=== PATIENT | male | born 1975 | race Caucasian/White ===

== ENCOUNTER → 2017-09-16 | Outpatient (CLI) | payer OTHER | END | disposition home or self-care (01) | LOC: C.LAB 15:04 | DX: Z02.83 Encounter for blood-alcohol and blood-drug test (principal) ==

== ENCOUNTER 2019-05-12 18:39 | Inpatient (IN) ==
--- OUTSIDE RECORDS SUMMARY | 2019-05-12 18:41 | External Medical Summary | Continuity of Care Document ---
:1975 Author Name Bertin Ramos, Provider Address Unavailable Unavailable , Care Team Providers Name Role Phone Phillip Ramos, Toi Unavailable [email or web address] Unavailable Unavailable Problems Active medical history not documented Allergies and Adverse Reactions Allergy history not documented Medications Medications not documented Procedures Procedures not documented Immunizations Immunizations not documented Plan of Treatment Planned Observations Planned Goals not documented Results No Known Results Results not documented
[2019-05-12] MEDS ORDERED: LORazepam 1 MG/2 ML VIAL IV STA (19:01)
[2019-05-12] MEDS ORDERED: SODIUM CHLORIDE 0.9% 1000ML 1,000 ML IV SCH (19:15)
[2019-05-12 19:29] LABS: Basophils % (auto) 2.1 %; Eosinophils # (auto) 0.05 K/uL (0-0.5); Hematocrit (blood only) 46.2 % (42-52); Hemoglobin 16.8 g/dL (14.0-18.0); Immature Granulocytes # (auto) 0.01 K/uL (0.00-0.02); Immature Granulocytes % (auto) 0.2 %; Lymphocytes # (auto) 1.34 K/uL (1.2-3.4); Lymphocytes % (auto) 27.5 %; Mean Corpuscular Hgb Conc 36.4 g/dL (32-36); Mean Corpuscular Volume 89.2 fL (80-100); Mean Platelet Volume 10.1 fL (7.4-10.4); Monocytes % (auto) 18.5 %; Neutrophils # (auto) 2.47 K/uL (1.4-6.5); Neutrophils % (auto) 50.7 %; Platelet Count 219 K/uL (130-400); RDW Coefficient of Variation 12.6 % (11.5-14.5); RDW Standard Deviation 40.5 fL (36.4-46.3); Red Blood Count 5.18 M/uL (4.7-6.1); White Blood Count 4.87 K/uL (4.8-10.8)
--- NOTE | 2019-05-12 19:31 | XRay Report ---
XR chest 1V portable CLINICAL HISTORY: dizzy, HTN TACHYCARDIA COMPARISON STUDY: No previous studies for comparison. FINDINGS: The cardiac and mediastinal contours are normal. There is no evidence of focal pulmonary co nsolidation. There is no evidence of failure. No pleural effusions are visualized.[ IMPRESSION: No active disease in the chest. Electronically signed by: Julio Beckham M.D. 05/12/2019 7:30 PM
[2019-05-12 19:47] LABS: Alanine Aminotransferase 136 U/L (12-78); Albumin Level 4.4 gm/dl (3.4-5.0); Aspartate Aminotransferase 75 U/L (15-37); BUN Creatinine Ratio 5.4 (10-20); Blood Urea Nitrogen 5 mg/dl (7-18); Carbon Dioxide 29 mmol/L (21-32); Chloride 97 mmol/L (98-107); Est GFR (African American) 119.1; Est GFR (Non-African American) 102.8; Glucose 148 mg/dl (70-99); Magnesium 1.7 mg/dl (1.8-2.4); Potassium 3.1 mmol/L (3.5-5.1); Sodium 135 mmol/L (136-145)
[2019-05-12 19:53] LABS: INR 1.1 (0.9-1.1); Prothrombin Time 11.3 Seconds (9.0-12.0)
[2019-05-12 19:58] LABS: Alkaline Phosphatase 84 U/L (45-117); Bilirubin,Total 1.5 mg/dl (0.2-1); Globulin 4.2 gm/dl (2.5-4.0); Phosphorus 2.2 mg/dl (2.5-4.9); Total Protein 8.6 gm/dl (6.4-8.2); Troponin I < 0.015 ng/ml (0-0.045)
[2019-05-12] MEDS ORDERED: FOLIC ACID 1 MG TAB PO STA (20:07)
[2019-05-12] MEDS ORDERED: ASCORBIC ACID 1,500 MG, THIAMINE HCL 100 MG in 0.9 % SODIUM CHLORIDE 100 ML IV STA (20:07)
[2019-05-12] MEDS ORDERED: POTASSIUM CHLORIDE 20 MEQ TABCR PO STA (20:07)
[2019-05-12] MEDS ORDERED: DIAZEPAM 5 MG/ML INJ 10ML VIAL IV STA ×3 (20:07→21:36)
[2019-05-12] MEDS ORDERED: MAGNESIUM CHLORIDE 64MG DELAYED REL TAB PO STA (20:07)
[2019-05-12] MEDS ORDERED: MAGNESIUM SULFATE / D5W 1 GM/100 ML BAG IV ONE (20:07)
--- NOTE | 2019-05-12 21:41 | Emergency Department Note ---
Entered by [place] acting as a scribe for Abimael Gage M.D. History of Present Illness General Chief complaint: Hypertension Stated complaint: HIGH BLOOD PRESSURE, DIZZINESS Source: patient Mode of arrival: ambulatory Limitations: no limitations History of Present Illness Onset (ago): day(s) 1 Radiation: non-radiation Pain Consistency: + constant Relieved By: + none Exacerbated By: + none Associated symptoms: + nausea/vomiting (+nausea, -vomiting), + weakness and + other (-abdominal pain); no chest pain, no headaches and no shortness of breath Treatments prior to arrival: none The patient is a 43 year old male who presents to the ED with complaints of hypertension. He states this morning he woke up very early feeling anxious, chilled and diaphoretic, like he was "having a panic attack". He felt weak and lethargic for most of the day and reports he slept a lot today, then had his Mother check his blood pressure and it was elevated. The patient admits to a history of heavy alcohol use and states he stopped drinking 2 weeks ago. He does not take any daily medications. He denies any recent headache, chest pain, ok rtness of breath or abdominal pain. He was nauseous earlier today but has not vomited. He denies any changes in vision. He did feel lightheaded earlier today but denies any syncopal episodes. The patient states he used to take Losartan for his blood pressure but has not taken it in 3 years due to not having health insurance currently. Home Medications Home Medications Medication Instructions Recorded Confirmed Type ibuprofen [Advil] 400 mg PO HS PRN 05/12/19 05/12/19 History Allergies Allergy/AdvReac Type Severity Reaction Status Date / Time Penicillins Allergy Hives Verified 05/12/19 19:24 Past Med/Surg History Medical History Alcohol abuse HTN (hypertension) Family History Other Family history non-contributory Social History marital status: Current Living Situation: Spouse current occupational status: employed Feels Safe at Home: Yes Smoking Status: Former smoker Review of Systems See HPI for pertinent positives & negatives. and A total of 10 systems reviewed and were otherwise negative Physical Exam Vital Signs Vital Signs - 24 hr 05/12/19 18:44 05/12/19 19:13 05/12/19 19:45 Temperature 36.7 C Temperature Source Oral Sepsis Recent Fever Within 48 Hours No Sepsis New/Unexplained Change in Mental Status No Sepsis Action Taken by Nursing No Action Required Pulse Rate 108 H Pulse Rate [Apical] 99 H Respiratory Rate 16 20 Respiratory Depth Normal Blood Pressure 225/127 H Blood Pressure [Left Arm] 184/120 H Blood Pressure Mean 159 Blood Pressure Mean [Left Arm] 141 Blood Pressure Position Sitting Pulse Oximetry 97 97 96 Oxygen Delivery Method Room Air Room Air Room Air 05/12/19 20:42 Temperature Temperature Source Sepsis Recent Fever Within 48 Hours Sepsis New/Unexplained Change in Mental Status Sepsis Action Taken by Nursing Pulse Rate Pulse Rate [Apical] 92 H Respiratory Rate 18 Respiratory Depth Blood Pressure Blood Pressure [Left Arm] 167/112 H Blood Pressure Mean Blood Pressure Mean [Left Arm] 130 Blood Pressure Position Pulse Oximetry 96 Oxygen Delivery Method Room Air GENERAL: Awake, alert, appears slightly tremulous, no slurred speech HENT: Normocephalic, atraumatic. Oropharynx unremarkable. EYES: Normal conjunctiva. Sclera non-icteric. PERRL. NECK: Supple. No nuchal rigidity. RESPIRATORY: Clear to auscultation. No wheezes. Normal respiratory effort. CARDIAC: Tachycardic heart rate. Normal rhythm. Extremities warm and well p erfused. GI: Soft, non-distended. No tenderness to palpation. No rebound or guarding. No masses. RECTAL: Deferred. MUSCULOSKELETAL: Atraumatic. Chest examination reveals no tenderness. LOWER EXTREMITIES: Calves are equal size bilaterally and non-tender. No edema NEURO: Normal sensorium. No sensory or motor deficits noted. No facial droop. Tremor of tongue and hands. SKIN: Warm and dry. No rash or jaundice noted. Course 1853: The patient was evaluated in room C5 and a complete history and physical were performed. 2004: I reevaluated the patient. He states he might have had a drink of alcohol yesterday. 2099: I talked with the patient and his family and the patient is agreeable with inpatient treatment and rehab. His symptoms are slowly improving. 2103: I discussed the patients case with Chantel Carrera. The patient will be further evaluated. Consultations Consultation #1: I discussed the patients case with Dr. Palepu, [facility]ist. The patient will be further evaluated. Time: 21:04 Administered Medications Discontinued Medications Diazepam (Valium) 5 mg IV NOW STA Stop: 05/12/19 20:08 Last Admin: 05/12/19 20:16 Dose: 5 mg Documented by: [id number] Diazepam (Valium) 5 mg IV NOW STA Stop: 05/12/19 21:02 Last Admin: 05/12/19 21:22 Dose: 5 mg Documented by: [id number] Folic Acid (Folvite) 1 mg PO ONE STA Stop: 05/12/19 20:08 Last Admin: 05/12/19 20:36 Dose: 1 mg Documented by: [id number] Lorazepam (Ativan) 1 mg in 2 mls @ 2 mls/min IV NOW STA Stop: 05/12/19 19:02 Last Admin: 05/12/19 19:40 Dose: 2 mls/min Documented by: [id number] Sodium Chloride (Nss 1000ml) 1,000 mls @ 999 mls/hr IV .Q1H1M ARTHUR Stop: 05/12/19 20:15 Last Infusion: 05/12/19 21:03 Dose: 0 mls/hr Documented by: [id number] Admin: 05/12/19 19:40 Dose: 999 mls/hr Documented by: [id number] Magnesium Sulfate/Dextrose (Magnesium Sulfate / D5w) 1 gm in 100 mls @ 100 mls/hr IV ONE ONE Stop: 05/12/19 21:06 Last Infusion: 05/12/19 21:30 Dose: 0 mls/hr Documented by: [id number] Admin: 05/12/19 20:16 Dose: 100 mls/hr Documented by: [id number] Ascorbic Acid 1,500 mg/Thiamine HCl 100 mg/ Sodium Chloride 104 mls @ 207 mls/hr IV ONE STA Stop: 05/12/19 20:37 Last Infusion: 05/12/19 21:30 Dose: 0 mls/hr Documented by: [id number] Admin: 05/12/19 20:36 Dose: 207 mls/hr Documented by: [id number] Magnesium Chloride (Slow-Mag) 64 mg PO ONE STA Stop: 05/12/19 20:08 Last Admin: 05/12/19 20:36 Dose: 64 mg Documented by: [id number] Potassium Chloride (Klor-Con M20) 40 meq PO NOW STA Stop: 05/12/19 20:08 Last Admin: 05/12/19 20:16 Dose: 40 meq Documented by: [id number] Medical Decision Making Differential Diagnosis Etiologies such as benign hypertension, hypertensive emergency, cardiovascular pathology, pheochromocytoma, electrolyte abnormality, renal disease, endorgan damage, as well as others were entertained. Medical Records Attestation: I reviewed the patient's medical records. Home Medications Current Medication List: was personally reviewed by me Laboratory Data Attestation: I reviewed the patient's lab results. Result diagrams: 05/12/19 19:07 05/12/19 19:07 Lab Results 05/12/19 05/12/19 05/12/19 Range/Units 19: 19: 19:07 WBC 4.87 (4.8-10.8) K/uL RBC 5.18 (4.7-6.1) M/uL Hgb 16.8 (14.0-18.0) g/dL Hct 46.2 (42-52) % MCV 89.2 (80-100) fL MCH 32.4 (25-34) pg MCHC 36.4 H (32-36) g/dL RDW Std Deviation 40.5 (36.4-46.3) fL RDW Coeff of Catrina 12.6 (11.5-14.5) % Plt Count 219 (130-400) K/uL MPV 10.1 (7.4-10.4) fL Immature Gran % (Auto) 0.2 % Neut % (Auto) 50.7 % Lymph % (Auto) 27.5 % Desha % (Auto) 18.5 % Eos % (Auto) 1.0 % Baso % (Auto) 2.1 % Immature Gran # (Auto) 0.01 (0.00-0.02) K/uL Neut # (Auto) 2.47 (1.4-6.5) K/uL Lymph # (Auto) 1.34 (1.2-3.4) K/uL Desha # (Auto) 0.90 H (0.11-0.59) K/uL Eos # (Auto) 0.05 (0-0.5) K/uL Baso # (Auto) 0.10 (0-0.2) K/uL PT 11.3 (9.0-12.0) Seconds INR 1.1 (0.9-1.1) Sodium 135 L (136-145) mmol/L Potassium 3.1 L (3.5-5.1) mmol/L Chloride 97 L (98-107) mmol/L Carbon Dioxide 29 (21-32) mmol/L Anion Gap 9.0 (3-11) BUN 5 L (7-18) mg/dl Creatinine 0.90 (0.6-1.4) mg/dl Est Cr Clr Drug Dosing Not Reportable Est GFR ( Amer) 119.1 Est GFR (Non-Af Amer) 102.8 BUN/Creatinine Ratio 5.4 L (10-20) Glucose 148 H (70-99) mg/dl Calcium 9.0 (8.5-10.1) mg/dl Phosphorus 2.2 L (2.5-4.9) mg/dl Magnesium 1.7 L (1.8-2.4) mg/dl Total Bilirubin 1.5 H (0.2-1) mg/dl AST 75 H (15-37) U/L ALT 136 H (12-78) U/L Alkaline Phosphatase 84 (45-117) U/L Troponin I < 0.015 (0-0.045) ng/ml Total Protein 8.6 H (6.4-8.2) gm/dl Albumin 4.4 (3.4-5.0) gm/dl Globulin 4.2 H (2.5-4.0) gm/dl Albumin/Globulin Ratio 1.0 (0.9-2) TSH 0.943 (0.300-4.500) uIu/ml Ethyl Alcohol mg/dL (0-3) mg/dl 05/12/19 Range/Units 19:07 WBC (4.8-10.8) K/uL RBC (4.7-6.1) M/uL Hgb (14.0-18.0) g/dL Hct (42-52) % MCV (80-100) fL MCH (25-34) pg MCHC (32-36) g/dL RDW Std Deviation (36.4-46.3) fL RDW Coeff of Catrina (11.5-14.5) % Plt Count (130-400) K/uL MPV (7.4-10.4) fL Immature Gran % (Auto) % Neut % (Auto) % Lymph % (Auto) % Desha % (Auto) % Eos % (Auto) % Baso % (Auto) % Immature Gran # (Auto) (0.00-0.02) K/uL Neut # (Auto) (1.4-6.5) K/uL Lymph # (Auto) (1.2-3.4) K/uL Desha # (Auto) (0.11-0.59) K/uL Eos # (Auto) (0-0.5) K/uL Baso # (Auto) (0-0.2) K/uL PT (9.0-12.0) Seconds INR (0.9-1.1) Sodium (136-145) mmol/L Potassium (3.5-5.1) mmol/L Chloride (98-107) mmol/L Carbon Dioxide (21-32) mmol/L Anion Gap (3-11) BUN (7-18) mg/dl Creatinine (0.6-1.4) mg/dl Est Cr Clr Drug Dosing Est GFR ( Amer) Est GFR (Non-Af Amer) BUN/Creatinine Ratio (10-20) Glucose (70-99) mg/dl Calcium (8.5-10.1) mg/dl Phosphorus (2.5-4.9) mg/dl Magnesium (1.8-2.4) mg/dl Total Bilirubin (0.2-1) mg/dl AST (15-37) U/L ALT (12-78) U/L Alkaline Phosphatase (45-117) U/L Troponin I (0-0.045) ng/ml Total Protein (6.4-8.2) gm/dl Albumin (3.4-5.0) gm/dl Globulin (2.5-4.0) gm/dl Albumin/Globulin Ratio (0.9-2) TSH (0.300-4.500) uIu/ml Ethyl Alcohol mg/dL 13.0 H (0-3) mg/dl Imaging Data Radiologist's Impression: Radiology results as stated below per my review and the radiologist's interpretation: XR chest 1V portable CLINICAL HISTORY: dizzy, HTN TACHYCARDIA COMPARISON STUDY: No previous studies for comparison. FINDINGS: The cardiac and mediastinal contours are normal. There is no evidence of focal pulmonary consolidation. There is no evidence of failure. No pleural effusions are visualized. IMPRESSION: No active disease in the chest. Electronically signed by: Julio Beckham M.D. 05/12/2019 7:30 PM ECG Data Attestation: I personally reviewed and interpreted this ECG as follows: Indication: other (hypertension) Rate (beats per minute): 96 Rhythm: normal sinus Findings: + other (Normal axis); no ST depression and no ST elevation Blood Pressure Blood Pressure Findings: Elevated blood pressure Blood Pressure Disposition: further management by hospitalist ABIMBOLA Narrative Patient is a 43-year-old gentleman presenting to the emergency depart stating his blood pressure has been quite high. Has a history of hypertension. Evidently this morning awoke and felt like he was having a panic attack and has had these in the past. Reported some chills and may be a fever/cold sweat. Blood pressure was evidently elevated at that time. Was dizzy earlier but that actually resolved and at the current time does not have symptoms. Patient is significantly hypertensive at this point and mildly tachycardic. Tremors the hands and tongue are noted. Patient states he has been alcoholic in the past and had been a regular drinker up until 2 weeks ago. Denies any alcohol between then and now. Not otherwise on an benzodiazepines or taking other illicit drugs per his report. Seems very delay for alcohol withdrawal with a hypertension tachycardia and tremors are concerning. EKG basic labs and a chest x-ray obtained. Is no focal neurologic does indicate the need for CT of the head at this point. I doubt this stroke or intracranial hemorrhage. Did give a little bit of Ativan to see if this would help with his hypertension and symptoms. CBC is unremarkable. Sodium 135 is noted with some hypokalemia and hypomagnesemia. Slight AST ALT elevation is noted with a negative troponin. Detectable alcohol level of 13 is noted. On discussion with the patient later states he may have had one drink yesterday. Has history of DUIs and significant alcohol abuse. Patient states he is never had inpatient rehab but may consider at this point. His seeking outpatient rehabs and has been exploring this. Given folic acid, thiamine, ectopic acid, potassium, magnesium supplementation here. Liver functions likely related to his chronic alcohol use. His exam with significant hypertension and tremors consistent with alcohol withdrawal. Patient was significantly hypertensive and somewhat tachycardic on arrival. After Ativan has slight improvement given additional Valium for improvement. [facility] hospitalist contacted for next up admission. Patient parents present in agree with plan along with the patient. Likely to require close monitoring for withdrawal. Continues to deny hallucinations at this point. Impression & Plan Alcohol withdrawal, Hypokalemia, Hypomagnesemia Critical Care Time Critical Care Time: Yes Total Critical Care Time: 40 I have personally spent 40 minutes of critical care time in the direct management of this patient. This includes bedside care, interpretation of diagnostic studies, and testing, discussion with consultants, patient, and family members, and other required patient management activities. This 40 minutes is in excess of all separately billable procedures. Discharge Plan Visit Data Chief Complaint: Hypertension Stated Complaint: HIGH BLOOD PRESSURE, DIZZINESS ED Provider: Abimael Gage Discharge Problem: Alcohol withdrawal, Hypokalemia, Hypomagnesemia Patient Disposition: Being Evaluated by Hospitalist Forms Stand Alone Forms: [facility] Pres[facility] Prescriptions: No Action ibuprofen [Advil] 200 mg Tablet 400 mg PO HS PRN (Reason: Pain) RF: 0 Referrals Referrals: PCP,NO [Primary Care Provider] - The scribe's documentation has been prepared under my direction and personally reviewed by me in its entirety. I confirm that the note above accurately reflects all work, treatment, procedures, and medical decision making performed by me.
[2019-05-12] MEDS ORDERED: SODIUM PHOSPHATE 3 MMOL/1 ML INFUSION IV STA (22:06)
[2019-05-12] MEDS ORDERED: chlordiazePOXIDE ALCOHOL WITHDRAWL 50MG PO STA (22:06)
[2019-05-12] MEDS ORDERED: chlordiazePOXIDE HCl 25 MG CAP PO SCH (22:06)
[2019-05-12] MEDS ORDERED: SODIUM PHOSPHATE 15 MMOL in SODIUM CHLORIDE 0.9% 250 ML IV ONE (22:15)
[2019-05-12] MEDS ORDERED: FOLIC ACID 1 MG in SYRINGE 9.8 ML IV ONE (22:15)
[2019-05-12 22:18] LABS: Appearance Urine Clear (Clear); Bilirubin Urine Negative (Negative); Blood Urine Negative (Negative); Color Urine Yellow; Glucose Urine UA Negative (Negative); Ketones Urine Negative (Negative); Leukocyte Esterase Urine Negative (Negative); Nitrite Urine Negative (Negative); Protein Urine Negative (Negative); Specific Gravity Urine 1.009 (1.000-1.030); Urobilinogen Urine Negative (Negative)
[2019-05-12] MEDS: cloNIDine HCl 0.1 MG TAB PO PRN (22:33)
[2019-05-12] MEDS: LORazepam 2 MG/4 ML VIAL IV PRN (22:33)
[2019-05-12] MEDS: SODIUM CHLORIDE 0.9% 1000ML 1,000 ML IV SCH (22:34)
--- NOTE | 2019-05-12 23:08 | History and Physical Report ---
DATE OF ADMISSION: 05/12/2019 CHIEF COMPLAINT: Anxiety, not feeling well, tachycardia, dizziness. HISTORY OF PRESENT ILLNESS: This is a 43-year-old male with past medical history significant for hypertension, but currently not on medications, history of alcoholism, used to be in [place], but currently relocated to [place], he lived in [place] in the past, comes because of feeling anxious, tachycardia, dizziness, not feeling well, sweating. In the ER when he came in, his blood pressure was in 225/127, was tachycardic with heart rate in the 100s and shaky. He says he was heavy drinker, drinks like 6-12 beers for about 20-25 years and recently he was caught for drunk under the influence and he says he will go to custodial after this hospitalization. He says he did not drink alcohol for last 2 weeks, but his alcohol level was 13 in the ER. In the ER, he received couple of doses of Valium, Ativan and is feeling better. His parents are in the room. Denies any headaches, no blurred vision, no earache, no runny nose, no sore throat, no difficulty swallowing. Appetite is okay. No chest pain, no shortness of breath, no cough, no fever, feeling chills when he came to the ER, but currently feeling better. No nausea, no vomiting, no abdominal pain. Normal bowel and bladder movements. No hematuria, no dysuria, no hematochezia or black stools. No swelling in the legs, ambulates okay. Lives with a roommate. ALLERGIES: PENICILLIN. PAST MEDICAL HISTORY: As mentioned above. PAST SURGICAL HISTORY: Back surgery and hernia surgery as a child. MEDICATIONS: Currently not taking medications. SOCIAL HISTORY: Smokes, but he says quit a few months back. Alcohol: He used to be a heavy drinker for the last 20-25 years, but says quit a couple of weeks ago, but alcohol level was detected in the ER. Denies any drug use. Currently living with a roommate. REVIEW OF SYMPTOMS: As per HPI. Rest of review of systems negative. PHYSICAL EXAMINATION: GENERAL: The patient is alert and oriented, not in acute distress. VITAL SIGNS: Temperature 36.7, pulse 92, respiratory rate 18, blood pressure currently 167/112, oxygen 96% room air. HEENT: No pallor, no icterus. Pupils equal, round and reactive to light. NECK: No JVD, no neck masses, no carotid bruits. CARDIOVASCULAR: S1, S2 heard. Tachycardia. No murmurs. RESPIRATORY SYSTEM: Normal AP diameter. No accessory muscle use. No wheezing, no crackles. ABDOMEN: Soft, bowel sounds present, nontender. No distention. CENTRAL NERVOUS SYSTEM: Cranial nerves II-XII grossly nonfocal. EXTREMITIES: No edema, no erythema. LABORATORY DATA: WBC 4.8, hemoglobin 16.8, hematocrit 46.2, platelets 219. PT 11.3, INR 1.1. Sodium 135, potassium 3.1, chloride 97, bicarbonate 29, BUN 5, creatinine 0.9, serum glucose 148, calcium 9, phosphorus 2.2, magnesium 1.7, total bilirubin 1.5, AST 75, ALT 136, alkaline phosphatase 84. Troponin I less than 0.015. TSH 0.943.UA negative, alcohol 13. CHEST X-RAY: No acute disease in the chest. EKG: Normal sinus rhythm with rate of 96, no acute ST changes seen. ASSESSMENT AND PLAN: This is a 43-year-old male who presents with alcohol withdrawal symptoms. 1. Alcoholism and alcohol withdrawal. He is a heavy drinker for the last 25 years, but says quit a couple of weeks ago. He says he was caught for drunk under the influence and he says he will go to custodial after this hospitalization. Received a couple of doses of IV Valium and also Ativan in the ER. Since the patient's symptoms already started, we will place him on Librium protocol with IV Ativan p.r.n., banana bag, IV thiamine, IV folic acid, IV normal saline 100 mL per hour for now and closely monitor in tele floor. 2. Hypertension, mostly from alcohol withdrawal. The patient says he has a history of hypertension, but not on medication. We will place on clonidine p.r.n. for now and monitor his blood pressure. 3. Electrolyte abnormalities: Sodium is 135. We will follow the labs in a.m. and continue fluids, potassium 3.1. Received supplement in the ER. We will follow repeat labs. Magnesium of 1.7, received magnesium in the ER. We will follow repeat labs. Phosphorus 2.2. We will give a dose sodium phosphate. 4. Elevated LFTs, possibly from alcoholism. We will follow repeat labs in a.m. 5. Deep venous thrombosis prophylaxis, SCDs. DISPOSITION: Closely monitor in the tele floor. Level 1 full code. MTDD
[2019-05-13] MEDS ORDERED: cloNIDine HCl 0.1 MG TAB PO ONE (00:03)
[2019-05-13] MEDS ORDERED: LORazepam 1 MG/2 ML VIAL IV STA (00:03)
[2019-05-13] MEDS ORDERED: chlordiazePOXIDE ALCOHOL WITHDRAWL 50MG PO STA (00:08)
[2019-05-13] MEDS: chlordiazePOXIDE HCl 25 MG CAP PO SCH ×5 (00:28→18:43)
[2019-05-13 05:00] LABS: Amphetamines+Metham, Urine Neg (Neg); Barbiturates, Urine Neg (Neg); Benzodiazepine, Urine Pos (Neg); Cocaine, Urine Neg (Neg); MDMA (Ecstacy), Urine Neg (Neg); Methadone, Urine Neg (Neg); Opiate, Urine Neg (Neg); Phencyclidine, Urine Neg (Neg)
[2019-05-13 05:31] LABS: Albumin Level 3.4 gm/dl (3.4-5.0); Bilirubin Direct 0.4 mg/dl (0-0.2); Bilirubin,Total 1.4 mg/dl (0.2-1); Phosphorus 3.3 mg/dl (2.5-4.9); Total Protein 6.9 gm/dl (6.4-8.2)
[2019-05-13 06:35] LABS: Basophils # (auto) 0.09 K/uL (0-0.2); Basophils % (auto) 1.7 %; Eosinophils # (auto) 0.25 K/uL (0-0.5); Eosinophils % (auto) 4.7 %; Hematocrit (blood only) 41.7 % (42-52); Hemoglobin 14.7 g/dL (14.0-18.0); Immature Granulocytes # (auto) 0.02 K/uL (0.00-0.02); Immature Granulocytes % (auto) 0.4 %; Lymphocytes # (auto) 1.99 K/uL (1.2-3.4); Lymphocytes % (auto) 37.3 %; Mean Corpuscular Hgb Conc 35.3 g/dL (32-36); Mean Platelet Volume 10.5 fL (7.4-10.4); Monocytes # (auto) 1.08 K/uL (0.11-0.59); Monocytes % (auto) 20.2 %; Neutrophils # (auto) 1.91 K/uL (1.4-6.5); Neutrophils % (auto) 35.7 %; Platelet Count 212 K/uL (130-400); RDW Coefficient of Variation 12.7 % (11.5-14.5); RDW Standard Deviation 42.1 fL (36.4-46.3); Red Blood Count 4.58 M/uL (4.7-6.1); White Blood Count 5.34 K/uL (4.8-10.8)
[2019-05-13 07:21] LABS: Albumin Level 3.4 gm/dl (3.4-5.0); BUN Creatinine Ratio 6.8 (10-20); Bilirubin Direct 0.4 mg/dl (0-0.2); Bilirubin,Total 1.6 mg/dl (0.2-1); Calcium 8.6 mg/dl (8.5-10.1); Creatinine Clr Calc Pharmacy 116.6 ml/min; Est GFR (Non-African American) 107.9; Magnesium 2.3 mg/dl (1.8-2.4); Phosphorus 3.4 mg/dl (2.5-4.9); Potassium 3.6 mmol/L (3.5-5.1); Total Protein 6.8 gm/dl (6.4-8.2)
[2019-05-13] MEDS: SODIUM CHLORIDE 0.9% 1000ML 1,000 ML IV SCH ×2 (08:17→20:49)
[2019-05-13] MEDS: cloNIDine HCl 0.1 MG TAB PO PRN (08:17)
[2019-05-13] MEDS: CEROVITE ADV FORMULA TAB PO SCH (08:19)
[2019-05-13] MEDS: THIAMINE HCL 100 MG in SYRINGE 9 ML IV SCH (08:19)
[2019-05-13] MEDS: FOLIC ACID 1 MG in SYRINGE 9.8 ML IV SCH (08:19)
[2019-05-13] MEDS ORDERED: MULTI-VITAMIN INFUSION 10 ML, THIAMINE HCL 100 MG, FOLIC ACID 1 MG in SODIUM CHLORIDE 0... IV ONE (09:00)
[2019-05-13 10:04] LABS: Vitamin B12 375 pg/ml (211-911)
[2019-05-13 10:05] LABS: Folate (Folic Acid) > 24.00 ng/ml (>5.38)
[2019-05-13] MEDS: LORazepam 2 MG/4 ML VIAL IV PRN ×2 (18:43→20:49)
[2019-05-13] MEDS ORDERED: GABAPENTIN 1200MG ALCOHOL WITHDRAWAL LOAD PO STA (19:06)
[2019-05-13] MEDS ORDERED: AMLODIPINE BESYLATE 5 MG TAB PO ONE (19:19)
--- NOTE | 2019-05-13 19:19 | Hospitalist Progress Note ---
Date of Service May 13, 2019 Assessment & Plan (1) Alcohol withdrawal: Alcohol withdrawal (Acute) Presented with signs / symptoms of alcohol withdrawal. Last alcohol consumption reportedly several days prior to admission. Receiving chlordiazepoxide per protocol, but sedated. Change withdrawal protocol to gabapentin. Alcohol abuse (Chronic) Follow LFT's. Encourage counseling / ongoing support. MVI, thiamine. Hypertension (Chronic) History of hypertension, not recently treated. Blood pressures as high as 225/127. Hypertensive urgency, probably secondary to alcohol withdrawal. Management of alcohol withdrawal as discussed above. Clonidine as needed. Hypokalemia (Acute) Serum potassium at time of admission 3.1. Received replacement. Potassium today = 3.6. Follow. Hypomagnesemia (Acute) Serum magnesium at time of admission 1.7. Received replacement. Magnesium today = 2.3. Follow. VTE prophylaxis No anticoagulants in light of alcohol abuse and risk of upper GI bleeding. SCDs. Ambulate. Disposition Discharge disposition to be determined. Subjective Recheck for alcohol withdrawal symptoms. Patient seen in their room around 1210. Feels sedated. No visual hallucinations. No tremor. Appetite fairly good. No nausea or vomiting. Review of Systems: Constitutional- no fever. Cardiac- no chest pain. Pulmonary- no cough or SOB. GI- no nausea, vomiting, diarrhea, melena, hematochezia. - no urinary symptoms. Otherwise, as noted above. Physical Exam Physical Exam: Constitutional- afebrile, no acute distress Eyes- sclerae anicteric Respiratory- clear to auscultation, no respiratory distress Cardiovascular- cardiac rhythm regular, no murmurs or gallops appreciated, no JVD, no pretibial edema or calf tenderness Gastrointestinal- normal bowel sounds, soft, nondistended, nontender Skin- warm and dry, no rash Psychiatric- alert, somewhat sedated Neuro- mild hand tremor Results & Data Vital Signs (Past 12 Hours) Vital Signs Temp Pulse Pulse Resp BP BP Pulse Ox 05/13/19 18:59 75 05/13/19 16:00 36.3 C L 75 18 153/113 H 97 05/13/19 14:46 70 19 154/105 H 97 05/13/19 12:00 36.5 C 64 16 146/101 H 98 05/13/19 10:00 74 19 05/13/19 08:16 77 18 150/107 H 05/13/19 08:00 36.6 C 97 Laboratory Results Laboratory Results - last 24 hr 05/12/19 05/12/19 05/12/19 19:07 19:07 19:07 WBC 4.87 RBC 5.18 Hgb 16.8 Hct 46.2 MCV 89.2 MCH 32.4 MCHC 36.4 H RDW Std Deviation 40.5 RDW Coeff of Catrina 12.6 Plt Count 219 MPV 10.1 Immature Gran % (Auto) 0.2 Neut % (Auto) 50.7 Lymph % (Auto) 27.5 [place] % (Auto) 18.5 Eos % (Auto) 1.0 Baso % (Auto) 2.1 Immature Gran # (Auto) 0.01 Neut # (Auto) 2.47 Lymph # (Auto) 1.34 [place] # (Auto) 0.90 H Eos # (Auto) 0.05 Baso # (Auto) 0.10 PT 11.3 INR 1.1 Sodium 135 L Potassium 3.1 L Chloride 97 L Carbon Dioxide 29 Anion Gap 9.0 BUN 5 L Creatinine 0.90 Est Cr Clr Drug Dosing Not Reportable Est GFR ( Amer) 119.1 Est GFR (Non-Af Amer) 102.8 BUN/Creatinine Ratio 5.4 L Glucose 148 H POC Glucose Calcium 9.0 Phosphorus 2.2 L Magnesium 1.7 L Total Bilirubin 1.5 H Direct Bilirubin AST 75 H ALT 136 H Alkaline Phosphatase 84 Troponin I < 0.015 Total Protein 8.6 H Albumin 4.4 Globulin 4.2 H Albumin/Globulin Ratio 1.0 Vitamin B12 Folate TSH 0.943 Urine Color Urine Appearance Urine pH Ur Specific [place] Urine Protein Urine Glucose (UA) Urine Ketones Urine Blood Urine Nitrite Urine Bilirubin Urine Urobilinogen Ur Leukocyte Esterase Nasal Screen MRSA (PCR) Urine Opiates Screen Ur Methadone, Qual Urine Barbiturates Ur Phencyclidine (PCP) U Amphetamin/Meth Scrn MDMA (Ecstasy) Screen U OH-Alprazolam Confrm U Benzodiazepines Scrn 7-Amino Clonazepam Ur Nordiazepam Confirm U OH-ethylflurazepam U Lorazepam Cnf GC/MS U Oxazepam Confm GC/MS Ur Temazepam Confirm U OH-Triazolam Confirm U OH-Midazolam Confirm Ur Cocaine Metabolite U Marijuana (THC) Screen Ethyl Alcohol mg/dL 09/01/2305/12/19 05/12/19 19:07 21:28 22:15 WBC RBC Hgb Hct MCV MCH MCHC RDW Std Deviation RDW Coeff of Catrina Plt Count MPV Immature Gran % (Auto) Neut % (Auto) Lymph % (Auto) [place] % (Auto) Eos % (Auto) Baso % (Auto) Immature Gran # (Auto) Neut # (Auto) Lymph # (Auto) [place] # (Auto) Eos # (Auto) Baso # (Auto) PT INR Sodium Potassium Chloride Carbon Dioxide Anion Gap BUN Creatinine Est Cr Clr Drug Dosing Est GFR ( Amer) Est GFR (Non-Af Amer) BUN/Creatinine Ratio Glucose POC Glucose Calcium Phosphorus Magnesium Total Bilirubin Direct Bilirubin AST ALT Alkaline Phosphatase Troponin I Total Protein Albumin Globulin Albumin/Globulin Ratio Vitamin B12 Folate TSH Urine Color Yellow Urine Appearance Clear Urine pH 7.0 Ur Specific [place] 1.009 Urine Protein Negative Urine Glucose (UA) Negative Urine Ketones Negative Urine Blood Negative Urine Nitrite Negative Urine Bilirubin Negative Urine Urobilinogen Negative Ur Leukocyte Esterase Negative Nasal Screen MRSA (PCR) Negative Urine Opiates Screen Ur Methadone, Qual Urine Barbiturates Ur Phencyclidine (PCP) U Amphetamin/Meth Scrn MDMA (Ecstasy) Screen U OH-Alprazolam Confrm U Benzodiazepines Scrn 7-Amino Clonazepam Ur Nordiazepam Confirm U OH-ethylflurazepam U Lorazepam Cnf GC/MS U Oxazepam Confm GC/MS Ur Temazepam Confirm U OH-Triazolam Confirm U OH-Midazolam Confirm Ur Cocaine Metabolite U Marijuana (THC) Screen Ethyl Alcohol mg/dL 13.0 H 05/12/19 05/13/19 05/13/19 22:56 00:17 04:15 WBC RBC Hgb Hct MCV MCH MCHC RDW Std Deviation RDW Coeff of Catrina Plt Count MPV Immature Gran % (Auto) Neut % (Auto) Lymph % (Auto) [place] % (Auto) Eos % (Auto) Baso % (Auto) Immature Gran # (Auto) Neut # (Auto) Lymph # (Auto) [place] # (Auto) Eos # (Auto) Baso # (Auto) PT INR Sodium Potassium Chloride Carbon Dioxide Anion Gap BUN Creatinine Est Cr Clr Drug Dosing Est GFR ( Amer) Est GFR (Non-Af Amer) BUN/Creatinine Ratio Glucose POC Glucose 89 Calcium Phosphorus Magnesium Total Bilirubin Direct Bilirubin AST ALT Alkaline Phosphatase Troponin I Total Protein Albumin Globulin Albumin/Globulin Ratio Vitamin B12 Folate > 24.00 TSH Urine Color Urine Appearance Urine pH Ur Specific [place] Urine Protein Urine Glucose (UA) Urine Ketones Urine Blood Urine Nitrite Urine Bilirubin Urine Urobilinogen Ur Leukocyte Esterase Nasal Screen MRSA (PCR) Urine Opiates Screen Neg Ur Methadone, Qual Neg Urine Barbiturates Neg Ur Phencyclidine (PCP) Neg U Amphetamin/Meth Scrn Neg MDMA (Ecstasy) Screen Neg U OH-Alprazolam Confrm U Benzodiazepines Scrn Pos H 7-Amino Clonazepam Ur Nordiazepam Confirm U OH-ethylflurazepam U Lorazepam Cnf GC/MS U Oxazepam Confm GC/MS Ur Temazepam Confirm U OH-Triazolam Confirm U OH-Midazolam Confirm Ur Cocaine Metabolite Neg U Marijuana (THC) Screen Neg Ethyl Alcohol mg/dL 05/13/19 05/13/19 05/13/19 04:15 04:42 04:42 WBC RBC Hgb Hct MCV MCH MCHC RDW Std Deviation RDW Coeff of Catrina Plt Count MPV Immature Gran % (Auto) Neut % (Auto) Lymph % (Auto) [place] % (Auto) Eos % (Auto) Baso % (Auto) Immature Gran # (Auto) Neut # (Auto) Lymph # (Auto) [place] # (Auto) Eos # (Auto) Baso # (Auto) PT INR Sodium Potassium Chloride Carbon Dioxide Anion Gap BUN Creatinine Est Cr Clr Drug Dosing Est GFR ( Amer) Est GFR (Non-Af Amer) BUN/Creatinine Ratio Glucose POC Glucose Calcium Phosphorus 3.3 D Magnesium Total Bilirubin 1.4 H Direct Bilirubin 0.4 H AST 51 H ALT 99 H Alkaline Phosphatase 65 Troponin I Total Protein 6.9 Albumin 3.4 Globulin Albumin/Globulin Ratio Vitamin B12 375 Folate > 24.00 TSH Urine Color Urine Appearance Urine pH Ur Specific [place] Urine Protein Urine Glucose (UA) Urine Ketones Urine Blood Urine Nitrite Urine Bilirubin Urine Urobilinogen Ur Leukocyte Esterase Nasal Screen MRSA (PCR) Urine Opiates Screen Ur Methadone, Qual Urine Barbiturates Ur Phencyclidine (PCP) U Amphetamin/Meth Scrn MDMA (Ecstasy) Screen U OH-Alprazolam Confrm Pending U Benzodiazepines Scrn 7-Amino Clonazepam Pending Ur Nordiazepam Confirm Pending U OH-ethylflurazepam Pending U Lorazepam Cnf GC/MS Pending U Oxazepam Confm GC/MS Pending Ur Temazepam Confirm Pending U OH-Triazolam Confirm Pending U OH-Midazolam Confirm Pending Ur Cocaine Metabolite U Marijuana (THC) Screen Ethyl Alcohol mg/dL 05/13/19 05/13/19 04:47 06:30 WBC 5.34 RBC 4.58 L Hgb 14.7 Hct 41.7 L MCV 91.0 MCH 32.1 MCHC 35.3 RDW Std Deviation 42.1 RDW Coeff of Catrina 12.7 Plt Count 212 MPV 10.5 H Immature Gran % (Auto) 0.4 Neut % (Auto) 35.7 Lymph % (Auto) 37.3 [place] % (Auto) 20.2 Eos % (Auto) 4.7 Baso % (Auto) 1.7 Immature Gran # (Auto) 0.02 Neut # (Auto) 1.91 Lymph # (Auto) 1.99 [place] # (Auto) 1.08 H Eos # (Auto) 0.25 Baso # (Auto) 0.09 PT INR Sodium 141 Potassium 3.6 D Chloride 106 Carbon Dioxide 32 Anion Gap 3.0 BUN 5 L Creatinine 0.80 Est Cr Clr Drug Dosing 116.6 Est GFR ( Amer) 125.0 Est GFR (Non-Af Amer) 107.9 BUN/Creatinine Ratio 6.8 L Glucose 92 POC Glucose Calcium 8.6 Phosphorus 3.4 Magnesium 2.3 Total Bilirubin 1.6 H Direct Bilirubin 0.4 H AST 47 H ALT 97 H Alkaline Phosphatase 68 Troponin I Total Protein 6.8 Albumin 3.4 Globulin Albumin/Globulin Ratio Vitamin B12 Folate TSH Urine Color Urine Appearance Urine pH Ur Specific [place] Urine Protein Urine Glucose (UA) Urine Ketones Urine Blood Urine Nitrite Urine Bilirubin Urine Urobilinogen Ur Leukocyte Esterase Nasal Screen MRSA (PCR) Urine Opiates Screen Ur Methadone, Qual Urine Barbiturates Ur Phencyclidine (PCP) U Amphetamin/Meth Scrn MDMA (Ecstasy) Screen U OH-Alprazolam Confrm U Benzodiazepines Scrn 7-Amino Clonazepam Ur Nordiazepam Confirm U OH-ethylflurazepam U Lorazepam Cnf GC/MS U Oxazepam Confm GC/MS Ur Temazepam Confirm U OH-Triazolam Confirm U OH-Midazolam Confirm Ur Cocaine Metabolite U Marijuana (THC) Screen Ethyl Alcohol mg/dL
[2019-05-13] MEDS ORDERED: GABAPENTIN 600 MG TAB PO SCH (19:30)
[2019-05-14] MEDS: GABAPENTIN 600 MG TAB PO SCH ×3 (06:26→20:55)
[2019-05-14 07:36] LABS: Hematocrit (blood only) 43.8 % (42-52); Hemoglobin 15.3 g/dL (14.0-18.0); Mean Corpuscular Hgb Conc 34.9 g/dL (32-36); Mean Corpuscular Volume 91.6 fL (80-100); Mean Platelet Volume 10.6 fL (7.4-10.4); Platelet Count 215 K/uL (130-400); RDW Coefficient of Variation 12.7 % (11.5-14.5); RDW Standard Deviation 42.5 fL (36.4-46.3); Red Blood Count 4.78 M/uL (4.7-6.1); White Blood Count 5.23 K/uL (4.8-10.8)
[2019-05-14] MEDS: THIAMINE HCL 100 MG in SYRINGE 9 ML IV SCH (07:59)
[2019-05-14] MEDS: AMLODIPINE BESYLATE 5 MG TAB PO SCH (07:59)
[2019-05-14] MEDS: CEROVITE ADV FORMULA TAB PO SCH (07:59)
[2019-05-14] MEDS: FOLIC ACID 1 MG in SYRINGE 9.8 ML IV SCH (08:00)
[2019-05-14] MEDS: cloNIDine HCl 0.1 MG TAB PO PRN (08:02)
[2019-05-14 08:07] LABS: Albumin Level 3.5 gm/dl (3.4-5.0); BUN Creatinine Ratio 7.7 (10-20); Creatinine Clr Calc Pharmacy 121.1 ml/min; Est GFR (Non-African American) 109.6; Magnesium 2.1 mg/dl (1.8-2.4); Potassium 3.6 mmol/L (3.5-5.1)
[2019-05-14 08:16] LABS: Bilirubin Direct 0.3 mg/dl (0-0.2); Bilirubin,Total 1.1 mg/dl (0.2-1); Globulin 3.5 gm/dl (2.5-4.0)
--- NOTE | 2019-05-14 19:28 | Hospitalist Progress Note ---
Date of Service May 14, 2019 Assessment & Plan (1) Alcohol withdrawal: Alcohol withdrawal (Acute) Presented with signs / symptoms of alcohol withdrawal. Last alcohol consumption reportedly several days prior to admission. Initially received chlordiazepoxide per protocol, but sedated. Changed withdrawal protocol to gabapentin. Continue gabapentin taper. Alcohol abuse (Chronic) Follow LFT's. Encourage counseling / ongoing support. MVI, thiamine. Hypertension (Chronic) History of hypertension, not recently treated. Blood pressures as high as 225/127. Hypertensive urgency, probably secondary to alcohol withdrawal. Management of alcohol withdrawal as discussed above. Started on amlodipine; clonidine PRN. BP this morning 158/101. Follow and titrate Rx. Hypokalemia (Acute) Serum potassium at time of admission 3.1. Received replacement. Potassium today = 3.6. Follow. Hypomagnesemia (Acute) Serum magnesium at time of admission 1.7. Received replacement. Magnesium today = 2.1. Follow. VTE prophylaxis No anticoagulants in light of alcohol abuse and risk of upper GI bleeding. SCDs. Ambulate. Disposition Discharge disposition to be determined. Subjective Recheck for alcohol withdrawal symptoms. Patient seen in their room around 1650. Parents visiting. Less sedated. No visual hallucinations. No tremor. No anorexia. No nausea or vomiting. Review of Systems: Constitutional- no fever. Cardiac- no chest pain. Pulmonary- no cough or SOB. GI- no nausea, vomiting, diarrhea, melena, hematochezia. - no urinary symptoms. Otherwise, as noted above. Physical Exam Physical Exam: Constitutional- afebrile, no acute distress Eyes- sclerae anicteric Respiratory- clear to auscultation, no respiratory distress Cardiovascular- cardiac rhythm regular, no murmurs or gallops appreciated, no JVD, no pretibial edema or calf tenderness Gastrointestinal- normal bowel sounds, soft, nondistended, nontender Skin- warm and dry, no rash Psychiatric- alert, oriented; no apparent hallucinations Results & Data Vital Signs (Past 12 Hours) Vital Signs Temp Pulse Pulse Resp BP Pulse Ox 05/14/19 19:15 36.5 C 76 18 151/96 H 98 05/14/19 16:00 82 05/14/19 15:59 36.6 C 84 18 158/99 H 97 05/14/19 11:33 36.5 C 79 16 142/79 H 98 05/14/19 07:40 36.6 C 81 19 158/101 H 99
[2019-05-15] MEDS: GABAPENTIN 600 MG TAB PO SCH ×2 (05:32→13:25)
[2019-05-15 07:24] LABS: Albumin Level 3.7 gm/dl (3.4-5.0); BUN Creatinine Ratio 7.7 (10-20); Bilirubin Direct 0.2 mg/dl (0-0.2); Calcium 9.1 mg/dl (8.5-10.1); Creatinine Clr Calc Pharmacy 103.6 ml/min; Est GFR (African American) 119.1; Est GFR (Non-African American) 102.8; Potassium 3.4 mmol/L (3.5-5.1)
[2019-05-15] MEDS: cloNIDine HCl 0.1 MG TAB PO PRN (07:25)
[2019-05-15] MEDS: AMLODIPINE BESYLATE 5 MG TAB PO SCH (07:26)
[2019-05-15] MEDS: CEROVITE ADV FORMULA TAB PO SCH (07:26)
[2019-05-15 07:27] LABS: Bilirubin,Total 0.8 mg/dl (0.2-1); Globulin 3.8 gm/dl (2.5-4.0); Total Protein 7.5 gm/dl (6.4-8.2)
[2019-05-15] MEDS: THIAMINE HCL 100 MG in SYRINGE 9 ML IV SCH (07:30)
[2019-05-15] MEDS: FOLIC ACID 1 MG in SYRINGE 9.8 ML IV SCH (07:30)
--- NOTE | 2019-05-15 10:06 | Ultrasound Report ---
ULTRASOUND RIGHT UPPER QUADRANT ABDOMEN CLINICAL HISTORY: Elevated hepatic transaminases. COMPARISON STUDY: No priors. TECHNIQUE: Real-time, grayscale, and color flow sonography of the right upper quadrant of the abdomen was performed. Images are reviewed in the transverse and longitudinal planes. FINDINGS: Liver: The liver is top normal in size and demonstrates heterogeneously increased echotexture consist ent with hepatic steatosis. There is no intrahepatic biliary ductal dilatation. The main portal vein is patent. Gallbladder: A 3 monitor gallbladder polyp is incidentally noted. The gallbladder is otherwise normal in appearance. No gallstones are identified. There is no gallbladder wall thickening or pericholecys tic fluid. A sonographic Katz's sign is reportedly absent. The common bile duct measures up to 0.3 cm in diameter. Pancreas: Visualized portions of the pancreatic head and body are normal in appearance. The splenic v ein is patent. Right kidney: Survey images of the right kidney demonstrate normal size and echotexture. There is no hydronephrosis. Ascites: None. IMPRESSION: 1. Hepatic steatosis. 2. No shadowing gallstones are identified. Electronically signed by: Mehdi Roger M.D. 05/15/2019 10:05 AM
--- NOTE | 2019-05-15 16:52 | Hospitalist Progress Note ---
Date of Service May 15, 2019 Assessment & Plan (1) Alcohol withdrawal: Alcohol withdrawal (Acute) Presented with signs / symptoms of alcohol withdrawal. Last alcohol consumption reportedly several days prior to admission. Initially received chlordiazepoxide per protocol, but sedated. Changed withdrawal protocol to gabapentin. Symptoms improved. Continue gabapentin taper. Alcohol abuse (Chronic) Follow LFT's. US showed hepatic steatosis. Encourage counseling / ongoing support. MVI, thiamine. Hypertension (Chronic) History of hypertension, not recently treated. Blood pressures as high as 225/127. Hypertensive urgency, probably secondary to alcohol withdrawal. Management of alcohol withdrawal as discussed above. Started on amlodipine; clonidine PRN. BP this morning 177/100; BP this afternoon 142/92. Follow and titrate Rx. Hypokalemia (Acute) Serum potassium at time of admission 3.1. Received replacement. Potassium today = 3.4. Follow. Hypomagnesemia (Acute) Serum magnesium at time of admission 1.7. Received replacement. Magnesium /7 was 2.1. Follow. VTE prophylaxis No anticoagulants in light of alcohol abuse and risk of upper GI bleeding. SCDs. Ambulate. Disposition Discharge disposition to be determined. Subjective Recheck for alcohol withdrawal symptoms. Patient seen in their room around 1550. Parents visiting. Feels better. Less sedated. No visual hallucinations. No tremor. No anorexia. No nausea or vomiting. BP's still fluctuating, but not as high. Review of Systems: Constitutional- no fever. Cardiac- no chest pain. Pulmonary- no cough or SOB. GI- no nausea, vomiting, diarrhea, melena, hematochezia. - no urinary symptoms. Otherwise, as noted above. Physical Exam Physical Exam: Constitutional- afebrile, no acute distress Eyes- sclerae anicteric Respiratory- clear to auscultation, no respiratory distress Cardiovascular- cardiac rhythm regular, no murmurs or gallops appreciated, no JVD, no pretibial edema or calf tenderness Gastrointestinal- normal bowel sounds, soft, nondistended, nontender Skin- warm and dry, no rash Psychiatric- alert, oriented Results & Data Vital Signs (Past 12 Hours) Vital Signs Temp Pulse Resp BP Pulse Ox 05/15/19 15:59 36.4 C L 77 18 142/92 H 98 05/15/19 11:30 36.7 C 67 16 154/96 H 97 05/15/19 07:23 36.8 C 69 16 177/100 H 97 Laboratory Results Laboratory Results - last 24 hr 05/15/19 06:36 Sodium 139 Potassium 3.4 L Chloride 103 Carbon Dioxide 32 Anion Gap 4.0 BUN 7 Creatinine 0.90 Est Cr Clr Drug Dosing 103.6 Est GFR ( Amer) 119.1 Est GFR (Non-Af Amer) 102.8 BUN/Creatinine Ratio 7.7 L Glucose 83 Calcium 9.1 Total Bilirubin 0.8 Direct Bilirubin 0.2 AST 78 H ALT 120 H Alkaline Phosphatase 68 Total Protein 7.5 Albumin 3.7 Globulin 3.8 Albumin/Globulin Ratio 1.0 Diagnostic Findings US RUQ FINDINGS: Liver: The liver is top normal in size and demonstrates heterogeneously increased echotexture consistent with hepatic steatosis. There is no intrahepatic biliary ductal dilatation. The main portal vein is patent. Gallbladder: A 3 monitor gallbladder polyp is incidentally noted. The gallbladder is otherwise normal in appearance. No gallstones are identified. There is no gallbladder wall thickening or pericholecystic fluid. A sonographic Katz's sign is reportedly absent. The common bile duct measures up to 0.3 cm in diameter. Pancreas: Visualized portions of the pancreatic head and body are normal in appearance. The splenic vein is patent. Right kidney: Survey images of the right kidney demonstrate normal size and echotexture. There is no hydronephrosis. Ascites: None. IMPRESSION: 1. Hepatic steatosis. 2. No shadowing gallstones are identified. Electronically signed by: Mehdi Roger M.D. 05/15/2019 10:05 AM
[2019-05-15] MEDS: POTASSIUM CHLORIDE 20 MEQ TABCR PO SCH (20:55)
[2019-05-16] MEDS: GABAPENTIN 600 MG TAB PO SCH ×2 (00:31→11:25)
[2019-05-16 07:59] LABS: Hematocrit (blood only) 45.1 % (42-52); Hemoglobin 15.9 g/dL (14.0-18.0); Mean Corpuscular Hgb Conc 35.3 g/dL (32-36); Mean Corpuscular Volume 91.7 fL (80-100); Mean Platelet Volume 10.5 fL (7.4-10.4); Platelet Count 235 K/uL (130-400); RDW Coefficient of Variation 12.7 % (11.5-14.5); RDW Standard Deviation 42.5 fL (36.4-46.3); Red Blood Count 4.92 M/uL (4.7-6.1); White Blood Count 6.89 K/uL (4.8-10.8)
[2019-05-16] MEDS: POTASSIUM CHLORIDE 20 MEQ TABCR PO SCH (08:08)
[2019-05-16] MEDS: CEROVITE ADV FORMULA TAB PO SCH (08:08)
[2019-05-16] MEDS: AMLODIPINE BESYLATE 5 MG TAB PO SCH (08:08)
[2019-05-16] MEDS: THIAMINE HCL 100 MG TAB PO SCH (08:08)
[2019-05-16] MEDS: FOLIC ACID 1 MG in SYRINGE 9.8 ML IV SCH (08:08)
[2019-05-16 09:35] LABS: Albumin Level 3.6 gm/dl (3.4-5.0); BUN Creatinine Ratio 7.4 (10-20); Calcium 9.1 mg/dl (8.5-10.1); Creatinine Clr Calc Pharmacy 95.2 ml/min; Est GFR (African American) 107.5; Est GFR (Non-African American) 92.7; Magnesium 2.2 mg/dl (1.8-2.4)
[2019-05-16 09:49] LABS: Albumin Globulin Ratio 0.9 (0.9-2); Bilirubin Direct 0.2 mg/dl (0-0.2); Bilirubin,Total 0.4 mg/dl (0.2-1); Globulin 3.8 gm/dl (2.5-4.0); Total Protein 7.4 gm/dl (6.4-8.2)
[2019-05-16] MEDS: IBUPROFEN 200 MG TAB PO PRN ×2 (11:25→20:41)
[2019-05-16 15:22] LABS: 7-Aminoclonaz, Confirm NEGATIVE NG/ML (CUTOFF=25); Hydro-Alp Ur, GC/MS NEGATIVE NG/ML (CUTOFF=25); Hydroxyethylflurazepam, Conf NEGATIVE NG/ML (CUTOFF=50); Hydroxytriazolam NEGATIVE NG/ML (CUTOFF=50); Lorazepam, Ur GC/MS 712 NG/ML (CUTOFF=50); Nordiazepam, Confirm 70 NG/ML (CUTOFF=50); Oxazepam Ur, GC/MS NEGATIVE NG/ML (CUTOFF=50); Temazepam, Confirm NEGATIVE NG/ML (CUTOFF=50)
--- NOTE | 2019-05-16 18:21 | Hospitalist Progress Note ---
Date of Service May 16, 2019 Assessment & Plan (1) Alcohol withdrawal: Alcohol withdrawal (Acute) Presented with signs / symptoms of alcohol withdrawal. Last alcohol consumption reportedly several days prior to admission. Initially received chlordiazepoxide per protocol, but sedated. Changed withdrawal protocol to gabapentin. Symptoms improved. Continue gabapentin taper. Alcohol abuse (Chronic) Total BR 1.5 --> --> 0.4. AST 75 --> --> 74. ALT 136 --> --> 120. AP 84 --> --> 70. US showed hepatic steatosis. Encourage counseling / ongoing support. MVI, thiamine. Hypertension (Chronic) History of hypertension, not recently treated. Blood pressures as high as 225/127. Hypertensive urgency, probably secondary to alcohol withdrawal. Management of alcohol withdrawal as discussed above. Started on amlodipine; clonidine PRN. BP this morning 151/94. Follow and titrate Rx. Hypokalemia (Acute) Serum potassium at time of admission 3.1. Received replacement. Potassium today = 4.0. Follow. Hypomagnesemia (Acute) Serum magnesium at time of admission 1.7. Received replacement. Magnesium 05/14 was 2.1. Follow. VTE prophylaxis No anticoagulants in light of alcohol abuse and risk of upper GI bleeding. SCDs. Ambulating. Disposition Discharge disposition to be determined. Subjective Recheck for alcohol withdrawal symptoms. Patient seen in their room around 0950. Feels better. No visual hallucinations. No tremor. No anorexia. No nausea or vomiting. BP's improved. Ambulating in hallway; experiencing some toe pain from old soccer injury. Review of Systems: Constitutional- no fever. Cardiac- no chest pain. Pulmonary- no cough or SOB. GI- no nausea, vomiting, diarrhea, melena, hematochezia. - no urinary symptoms. Otherwise, as noted above. Physical Exam Physical Exam: Constitutional- afebrile, no acute distress Eyes- sclerae anicteric Respiratory- clear to auscultation, no respiratory distress Cardiovascular- cardiac rhythm regular, no murmurs or gallops appreciated, no JVD, no pretibial edema or calf tenderness Gastrointestinal- normal bowel sounds, soft, nondistended, nontender Skin- warm and dry, no rash Psychiatric- alert, oriented Results & Data Vital Signs (Past 12 Hours) Vital Signs Temp Pulse Resp BP BP Pulse Ox 05/16/19 16:37 139/89 09/09/19 15:23 165/96 H 05/16/19 15:03 36.3 C L 90 90 05/16/19 07:15 36.4 C L 77 18 151/94 H 100 Laboratory Results Abnormal Lab Results 05/13/19 05/16/19 05/16/19 04:15 07:33 07:33 WBC 6.89 RBC 4.92 Hgb 15.9 Hct 45.1 MCV 91.7 MCH 32.3 MCHC 35.3 RDW Std Deviation 42.5 RDW Coeff of Catrina 12.7 Plt Count 235 MPV 10.5 H Sodium 140 Potassium 4.0 D Chloride 103 Carbon Dioxide 31 Anion Gap 6.0 BUN 7 Creatinine 0.98 Est Cr Clr Drug Dosing 95.2 Est GFR ( Amer) 107.5 Est GFR (Non-Af Amer) 92.7 BUN/Creatinine Ratio 7.4 L Glucose 86 Calcium 9.1 Magnesium 2.2 Total Bilirubin 0.4 Direct Bilirubin 0.2 AST 74 H ALT 120 H Alkaline Phosphatase 70 Total Protein 7.4 Albumin 3.6 Globulin 3.8 Albumin/Globulin Ratio 0.9 Triglycerides 137 Cholesterol 208 H LDL Cholesterol, Calc 108 VLDL Cholesterol, Calc 27 HDL Cholesterol 73 Cholesterol/HDL Ratio 3 U OH-Alprazolam Confrm NEGATIVE 7-Amino Clonazepam NEGATIVE Ur Nordiazepam Confirm 70 A U OH-ethylflurazepam NEGATIVE U Lorazepam Cnf GC/MS 712 A U Oxazepam Confm GC/MS NEGATIVE Ur Temazepam Confirm NEGATIVE U OH-Triazolam Confirm NEGATIVE U OH-Midazolam Confirm NEGATIVE
[2019-05-16] MEDS: cloNIDine HCl 0.1 MG TAB PO PRN (23:57)
[2019-05-17] MEDS: THIAMINE HCL 100 MG TAB PO SCH (09:29)
[2019-05-17] MEDS: AMLODIPINE BESYLATE 5 MG TAB PO SCH (09:29)
[2019-05-17] MEDS: CEROVITE ADV FORMULA TAB PO SCH (09:29)
[2019-05-17] MEDS: IBUPROFEN 200 MG TAB PO PRN (09:30)
[2019-05-17] MEDS: FOLIC ACID 1 MG in SYRINGE 9.8 ML IV SCH (09:31)
[2019-05-17] MEDS ORDERED: GABAPENTIN 600 MG TAB PO SCH (12:00)
--- NOTE | 2019-05-17 16:08 | Hospitalist Progress Note ---
Date of Service May 17, 2019 Assessment & Plan (1) Alcohol withdrawal: Alcohol withdrawal (Acute) Presented with signs / symptoms of alcohol withdrawal. Last alcohol consumption reportedly several days prior to admission. Initially received chlordiazepoxide per protocol, but sedated. Changed withdrawal protocol to gabapentin. Withdrawal symptoms resolved. Alcohol abuse (Chronic) Total BR 1.5 --> --> 0.4. AST 75 --> --> 74. ALT 136 --> --> 120. AP 84 --> --> 70. US showed hepatic steatosis. Encourage counseling / ongoing support. Given info on counseling services by Case Management. Motivated to abstain. MVI, thiamine. Hypertension (Chronic) History of hypertension, not recently treated. Blood pressures as high as 225/127. Hypertensive urgency, probably secondary to alcohol withdrawal. Management of alcohol withdrawal as discussed above. Started on amlodipine; clonidine PRN. Treated with losartan in the past. Losartan available with [facility] program. Discharge on losartan 25 mg daily. Follow and titrate Rx. Hypokalemia (Acute) Serum potassium at time of admission 3.1. Received replacement. Potassium 05/16 was 4.0. Follow. Hypomagnesemia (Acute) Serum magnesium at time of admission 1.7. Received replacement. Repeat Mg was 2.1. Follow. VTE prophylaxis No anticoagulants in light of alcohol abuse and risk of upper GI bleeding. SCDs. Ambulating. Disposition Discharge to home. Family Medicine follow-up with Dr. Bullock. Outpatient counseling / support for alcoholism. Subjective Doing well. No signs / symptoms of alcohol withdrawal. Finished gabapentin taper today. Has not required PRN lorazepam for a few days. Ready for discharge. Physical Exam Physical Exam: Constitutional- afebrile, no acute distress Eyes- sclerae anicteric Respiratory- clear to auscultation, no respiratory distress Cardiovascular- cardiac rhythm regular, no murmurs or gallops appreciated, no JVD, no pretibial edema or calf tenderness Gastrointestinal- normal bowel sounds, soft, nondistended, nontender Skin- warm and dry, no rash Psychiatric- alert, oriented Results & Data Vital Signs (Past 12 Hours) Vital Signs Temp Pulse Resp BP BP Pulse Ox 05/17/19 15:54 36.5 C 80 19 173/105 H 99 05/17/19 11:00 76 18 161/109 H 158/108 H 100 05/17/19 07:28 36.3 C L 75 18 156/108 H 156/101 H 100
[2019-05-17] MEDS: cloNIDine HCl 0.1 MG TAB PO PRN (16:20)
--- NOTE | 2019-05-18 08:59 | Discharge Summary ---
Date of Service Date of Admission: 05/12/19 Date of Discharge: 05/17/19 Admission HPI Per Admitting Provider This is a 43-year-old male with past medical history significant for hypertension, but currently not on medications, history of alcoholism, used to be in [place], but currently relocated to [place], he lived in [place] in the past, comes because of feeling anxious, tachycardia, dizziness, not feeling well, sweating. In the ER when he came in, his blood pressure was in 225/127, was tachycardic with heart rate in the 100s and shaky. He says he was heavy drinker, drinks like 6-12 beers for about 20-25 years and recently he was caught for drunk under the influence and he says he will go to custodial after this hospitalization. He says he did not drink alcohol for last 2 weeks, but his alcohol level was 13 in the ER. In the ER, he received couple of doses of Valium, Ativan and is feeling better. His parents are in the room. Denies any headaches, no blurred vision, no earache, no runny nose, no sore throat, no difficulty swallowing. Appetite is okay. No chest pain, no shortness of breath, no cough, no fever, feeling chills when he came to the ER, but currently feeling better. No nausea, no vomiting, no abdominal pain. Normal bowel and bladder movements. No hematuria, no dysuria, no hematochezia or black stools. No swelling in the legs, ambulates okay. Lives with a roommate. Principal Diagnosis alcohol withdrawal OTHER ACUTE DIAGNOSES hypertensive urgency hypokalemia hypomagnesemia Discharge Data Allergies Allergy/AdvReac Type Severity Reaction Status Date / Time Penicillins Allergy Hives Verified 05/12/19 19:24 Consultations 05/12/19 21:03 ED Decision to Admit Stat 05/16/19 11:30 Consult Patient Rep / Service Excellence [Consult Patient Services] Routine Ordered Studies 05/15/19 07:00 US liver Routine Hospital Course (1) Alcohol withdrawal: Alcohol withdrawal (Acute) Presented with signs / symptoms of alcohol withdrawal. Last alcohol consumption reportedly several days prior to admission. Initially received chlordiazepoxide per protocol, but sedated. Changed withdrawal protocol to gabapentin. Withdrawal symptoms resolved. Alcohol abuse (Chronic) Total BR 1.5 --> --> 0.4. AST 75 --> --> 74. ALT 136 --> --> 120. AP 84 --> --> 70. US showed hepatic steatosis. Encourage counseling / ongoing support. Given info on counseling services by Case Management. Motivated to abstain. Follow LFT's. Continue MVI, thiamine. Hypertension (Chronic) History of hypertension, not recently treated. Blood pressures as high as 225/127. Hypertensive urgency, probably secondary to alcohol withdrawal. Management of alcohol withdrawal as discussed above. Started on amlodipine; clonidine PRN. Treated with losartan in the past. Losartan available with [employer] Rx program. Discharge on losartan 25 mg daily. Follow and titrate Rx. Hypokalemia (Acute) Serum potassium at time of admission 3.1. Received replacement. Potassium 05/16 was 4.0. Follow. Hypomagnesemia (Acute) Serum magnesium at time of admission 1.7. Received replacement. Repeat Mg was 2.1. Follow. VTE prophylaxis No anticoagulants in light of alcohol abuse and risk of upper GI bleeding. SCDs. Ambulating. Disposition Discharged to home. Family Medicine follow-up with Dr. Bullock. Outpatient counseling / support for alcoholism. Total Time Total Time Spent Total Time Spent (In Minutes): 40 Discharge Plan Discharge Items Patient Disposition: Home - Self-Care Reason For Visit: anxiety Condition on Discharge: Good Activity: Resume your previous activity Non-emergency contact: Primary Care Provider and Hospitalist Follow-up/Referrals: Ti Bullock MD [Staff Physician] - ( 05/20/2019 11:00 AM Ti Bullock MD [facility] ) Add Alterations Supervisor Provider Instructions: MEDICATION CHANGES: Losartan (Cozaar) 25 mg daily for blood pressure. This is a low / starting dose. Dr. Bullock can make adjustments as necessary. SUMMARY OF TEST RESULTS: Liver enzymes were elevated. Ultrasound of liver showed fatty liver (could progress over time to cirrhosis). PENDING TEST RESULTS: none RECOMMENDATIONS FOR FOLLOW-UP: Please take full advantage of counseling services. OTHER INSTRUCTIONS: Do not drink any alcoholic beverages. Seek medical attention if you have: * temperature above 101 * chest pain or trouble breathing * abdominal pain, nausea, vomiting * diarrhea, dark stools or bloody stools * any unanswered questions or concerns Call 911 if symptoms are severe. Please take good care of yourself. Call if you have any questions or problems. You can reach a [facility] hospitalist on duty at [facility] 24 hours a day by calling [phone]. My cell # is [phone]. Stand-Alone Forms: My [facility] Health Medications and DC Order Prescriptions: New losartan 25 mg tablet 25 mg PO DAILY Qty: 30 RF: 5 thiamine HCl (vitamin B1) 100 mg tablet 100 mg PO DAILY Qty: 30 RF: 5 multivitamin tablet 1 tab PO DAILY Qty: 30 RF: 5 Continued ibuprofen [Advil] 200 mg Tablet 400 mg PO HS PRN (Reason: Pain) RF: 0 Discharge Orders: Discharge Order (Routine); Ordered 05/17/19 Ordered By: Onur Juarez Admission Data Admit Date/Time: 05/12/19 21:29 Attending Provider: Onur Juarez Admit Provider: Trent Garcia Primary Care Provider: PCP,NO Other Providers: Collins Barba ; Trent Garcia Other Interventions: Discharge Summary Assessment (RN) Last Done: 05/17/19 16:35 DC Date/Time DO NOT enter until pt leaves facility: 05/17/19 16:57
== END 2019-05-17 16:57 | disposition home or self-care (01) | DRG 897 ==
LOC: ED 18:39 → 1E 21:29 → SUATTDRO 21:29 → 1E 21:47 → 2S 05-13 16:06 → 4W 05-15 17:41